=== PATIENT | male | born 1995 | race Caucasian/White ===

== ENCOUNTER 2021-07-11 22:08 | Emergency (ER) | payer BC ==
[~2021-07-11] VITALS: Ht 190.5 cm; Wt 72.6 kg
[~2021-07-11 22:08] MED LIST: NORCO 7.5-3251 EACH PO; SINGULAIR10 MG PO; ZITHROMAX TRI-500 M1 PO
[2021-07-11 22:22] VITALS: BP 125/73
[2021-07-11] MEDS ORDERED: Motrin,Rufen800 MG PO (22:36)
[2021-07-11] MEDS ORDERED: CLINDAMYCIN HC300 MG PO (22:36)
== END 2021-07-11 22:44 | disposition home or self-care (01) ==
LOC: ED 22:08
DX: K08.89 Other specified disorders of teeth and supporting structures (principal)

== ENCOUNTER 2021-09-25 19:35 | Emergency (ER) | payer BC ==
[~2021-09-25] VITALS: Ht 190.5 cm; Wt 74.8 kg
[~2021-09-25 19:35] MED LIST changes: +CLINDAMYCIN HC300 MG PO; +Motrin,Rufen800 MG PO
[2021-09-25] MEDS ORDERED: IBU800 MG PO (20:09)
[2021-09-25] MEDS ORDERED: AMOXICILLIN500 M2 PO (20:09)
== END 2021-09-25 21:00 | disposition home or self-care (01) ==
LOC: ED 19:35
DX: K08.89 Other specified disorders of teeth and supporting structures (principal); F17.200 Nicotine dependence, unspecified, uncomplicated

== ENCOUNTER → 2025-08-14 | Outpatient (CLI) | payer OTHER ==
[~2025-08-14] MED LIST changes: +AMOXICILLIN500 M2 PO; +IBU800 MG PO
[2025-08-14 16:13] LABS: MEAN CELL VOLUME 83.2 fl (80.0-94.0); MEAN CORPUSCULAR HGB 29.9 pg (27.0-31.0); MEAN PLATELET VOLUME 9.4 fl (9.6-12.3); NUCLEATED RED BLOOD CELL 0.0 % (0.0-0.0); NUCLEATED RED BLOOD CELL 0.0 10*3/uL (0.0-0.0); PLATELET COUNT AUTOMATED 207.0 10*3/uL (130-400); RED CELL DISTRI WIDTH 12.1 % (0-14.5)
[2025-08-14 16:50] LABS: BUN 16 mg/dl (9-23); FREE T4 1.32 ng/dl (0.89-1.76); LDL CHOLESTEROL 126 mg/dL (9-159); SGPT/ALT 40 U/L (5-49)
== END | disposition home or self-care (01) ==
LOC: LAB 15:42
PROVIDERS: ATTEND Family Medicine
DX: R53.83 Other fatigue (principal); Z13.220 Encounter for screening for lipoid disorders; Z00.00 Encounter for general adult medical examination without abnormal findings